=== PATIENT | male | born 1945 | race Caucasian/White ===

== ENCOUNTER 2018-12-10 07:49 | Day surgery (SDC) | payer MEDICARE, BC ==
[~2018-12-10 07:49] MED LIST: Lactated Ringers 1,000 ML IV SCH; Sodium Chloride 0.9% 10 ML Syringe FLUSH PRN
[2018-12-10] MEDS ORDERED: Midazolam 1 MG/ML 2 ML SDV ONE ×2 (08:39→08:59)
[2018-12-10] MEDS ORDERED: Propofol 200 MG/20 ML SDV ONE ×2 (08:39→08:59)
--- NOTE | 2018-12-10 09:07 | PCM.PN ---
- General Info Date of Service: 12/10/18 - Review of Systems Systems Review Comment:: 73 y/o male here for screening colonoscopy. His last colon exam was about 10 years ago. He is medically stable to proceed. His recent H and P was reviewed and no significant changes are noted. He agrees to proceed accepting risks. - Patient Data Vitals - Most Recent: Last Vital Signs Temp 98.2 F 12/10/18 08:23 Pulse 61 12/10/18 08:23 Resp 20 12/10/18 08:23 BP 145/73 H 12/10/18 08:23 Pulse Ox 94 L 12/10/18 08:23 Weight - Most Recent: 80.739 kg Lab Results Last 24 Hours: Laboratory Results - last 24 hr 12/10/18 Range/Units 08:28 POC Glucose 100 (65-110) mg/dl Med Orders - Current: Current Medications Lactated Ringer's (Ringers, Lactated) 1,000 mls @ 125 mls/hr IV ASDIRECTED KATHERIN Last Admin: 12/10/18 08:11 Dose: 125 mls/hr Sodium Chloride (Saline Flush) 10 ml FLUSH ASDIRECTED PRN PRN Reason: Keep Vein Open Discontinued Medications Midazolam HCl (Versed 1 Mg/Ml) Confirm Administered Dose 2 mg .ROUTE .STK-MED ONE Stop: 12/10/18 08:40 Propofol (Diprivan 20 Ml) Confirm Administered Dose 400 mg .ROUTE .STK-MED ONE Stop: 12/10/18 08:40 - Problem List Review Problem List Initiated/Reviewed/Updated: Yes - Assessment Assessment:: Colon Cancer Screening - Plan Plan:: Colonoscopy
--- NOTE | 2018-12-10 09:40 | PCM.OPNOTE ---
- General Post-Op/Procedure Note Date of Surgery/Procedure: 12/10/18 Operative Procedure(s): Colonoscopy with Polypectomy Findings: Small Cecal Polyp Moderate Sigmoid Diverticulosis Large Hemorrhoids Pre Op Diagnosis: Colon Cancer Screening Post-Op Diagnosis: Colon Polyp. Sigmoid Diverticulosis. Hemorrhoids Anesthesia Technique: MAC Primary Surgeon: Christiano Montoya Pathology: Cecal Polyp EBL in mLs: 0 Complications: None Condition: Good
--- NOTE | 2018-12-10 12:13 | OR ---
Date of Procedure: 12/10/2018 PREOPERATIVE DIAGNOSIS: Colon cancer screening. POSTOPERATIVE DIAGNOSES: Cecal polyp, sigmoid diverticulosis, hemorrhoids. OPERATION PERFORMED: Colonoscopy with polypectomy. INDICATIONS FOR SURGERY: This 73-year-old male is here for screening colonoscopy. It has been approximately 10 years since his last colon exam. FINDINGS: Single polyp was noted on today's exam. This is a 7 mm sessile polyp noted in the cecum. The patient does have a moderate amount of sigmoid diverticulosis, which appears uncomplicated. He also has large and inflamed hemorrhoids. PROCEDURE IN DETAIL: The patient was taken to the operating room. He was given intravenous sedation, and with him in the left lateral decubitus position, digital rectal exam shows no rectal masses, although hemorrhoids were identified. The Olympus colonoscope was inserted into the rectum. Retroflexed examination of the rectal canal was performed. The scope was then carefully advanced through the entire length of the colon until the cecum was reached. Cecal acquisition was confirmed by noting the normal internal cecal anatomy including the appendiceal orifice and ileocecal valve. While examining the cecum, the above-described polyp was identified and it was removed with a cautery snare and retrieved. With no sign of complication, the scope was slowly withdrawn sequentially re-examining the colonic segments until the entire colon and rectum had been fully examined. The scope was removed and the patient was taken from the operating room in satisfactory condition. ESTIMATED BLOOD LOSS: 0. COMPLICATIONS: None. PROGNOSIS: Good. EDWARDO Montoya MD /[id number] cc: ROSITA Chang
== END 2018-12-10 10:53 | disposition home or self-care (01) ==
LOC: LL.SDS 07:49
PROVIDERS: ATTEND Surgery
DX: Z12.11 Encounter for screening for malignant neoplasm of colon (principal); D12.0 Benign neoplasm of cecum; K57.30 Diverticulosis of large intestine without perforation or abscess without bleeding; K64.9 Unspecified hemorrhoids; I10 Essential (primary) hypertension; E11.40 Type 2 diabetes mellitus with diabetic neuropathy, unspecified; E78.5 Hyperlipidemia, unspecified; D68.51 Activated protein C resistance; G25.81 Restless legs syndrome; Z86.718 Personal history of other venous thrombosis and embolism; Z79.82 Long term (current) use of aspirin; Z79.01 Long term (current) use of anticoagulants; Z79.4 Long term (current) use of insulin; Z79.899 Other long term (current) drug therapy
CPT/HCPCS: 00812; 45385; 82962; J2250; J2704; J7120; 88305

== ENCOUNTER 2022-03-14 09:51 | Day surgery (SDC) | payer MEDICARE ==
[~2022-03-14 09:51] MED LIST changes: +Midazolam 1 MG/ML 2 ML SDV ONE; +Propofol 200 MG/20 ML SDV ONE
== END 2022-03-14 13:08 | disposition home or self-care (01) ==
LOC: LL.SDS 09:51
PROVIDERS: ATTEND Surgery
DX: Z12.11 Encounter for screening for malignant neoplasm of colon (principal); D12.2 Benign neoplasm of ascending colon; K62.1 Rectal polyp; K57.30 Diverticulosis of large intestine without perforation or abscess without bleeding; E11.42 Type 2 diabetes mellitus with diabetic polyneuropathy; I10 Essential (primary) hypertension; E78.5 Hyperlipidemia, unspecified; E03.9 Hypothyroidism, unspecified; B35.1 Tinea unguium; Z98.890 Other specified postprocedural states; Z86.010 Personal history of colon polyps; Z79.899 Other long term (current) drug therapy; Z79.4 Long term (current) use of insulin; Z79.890 Hormone replacement therapy; Z79.84 Long term (current) use of oral hypoglycemic drugs; Z88.0 Allergy status to penicillin
CPT/HCPCS: 45380; J2250; J2704; J7120